=== PATIENT | male | born 1975 | race Caucasian/White ===

== ENCOUNTER → 2020-05-21 | Outpatient (CLI) | payer OTHER | LOC: CAT 09:00 | PROVIDERS: ATTEND Otolaryngology Plastic Surgery within the Head & Neck | DX: K21.9 Gastro-esophageal reflux disease without esophagitis (principal); H92.01 Otalgia, right ear; M54.2 Cervicalgia; R09.89 Other specified symptoms and signs involving the circulatory and respiratory systems ==